=== PATIENT | female | born 1945 | race Caucasian/White ===

== ENCOUNTER → 2016-09-19 | Outpatient (CLI) | payer MEDICARE, OTHER ==
[~2016-09-19] MED LIST: /ALEN70TA OR; /ALEN70TA PO; /ROPI25TA OR; /TIOT18INH INH; /WARF5TA OR; ACET500C PO; ACET65TA OR; B COCAP5 PO; CALCCHW12 OR; CALCIUM/VITAMIN D PO; CALCTAB22 OR; COLA100C2 OR; COUM10TA OR; ESTRING; FISH1000 OR; FISH300C2 PO; FLON0.05; LIDO5DIS EX; OMEP20TA7 PO; PERC5TAB8 OR; PERC7.5T8 OR; PRIL40CA OR; PROAAER INH; PROV90AE IN; SALINE NASAL SPRAY; SYMB80AE IN; SYMB80AE INH; SYNT75TA OR; TUMS500C PO; VIT D 2000 OR; VITA500C OR; VITA500T PO; VITAMIN B COMPLE1 OR; VITAMIN D 3 PO; WARF1TAB PO
[2016-09-19 17:32] LABS: CALCIUM LEVEL 9.4 MG/DL (8.8-10.2); FREE T4 1.54 NG/DL (0.76-1.46)
== END ==
LOC: M WUC 14:02
PROVIDERS: ATTEND Internal Medicine
DX: E55.9 Vitamin D deficiency, unspecified (principal); E06.3 Autoimmune thyroiditis

== ENCOUNTER → 2016-09-19 | Outpatient (CLI) | payer MEDICARE, OTHER ==
--- NOTE | 2016-09-21 09:13 | DEXA ---
AP SPINE L1 - L4 0.778 -3.4 -1.9 LT FEMUR TOTAL 0.610 -3.2 -1.8 RT FEMUR TOTAL Right hip fracture. TOTAL BODY TOTAL OTHER DUAL FEMUR FRAX* ASSESSMENT Risk factors: Premature menopause, family history? History right hip fracture. 10 year probability of fracture Major osteoporotic fracture 41.8 % Hip fracture 18.1 % COMMENTS: There is osteoporosis of the spine. There is osteoporosis of the left hip. The density of the spine has increased 6.3% since the initial exam on 2006. Spine density has increased 5.6% since the most recent exam on 09/17/2014. The density of the left hip has increased 4.6% since the initial exam on 2006. The density of the left hip has increased 0.0% since the most recent exam on . Right hip fracture. FOLLOW-UP: Recommendation for the next bone density exam: 2 years. JUANA
== END ==
LOC: M WHC 14:56
PROVIDERS: ATTEND Internal Medicine
DX: M81.0 Age-related osteoporosis without current pathological fracture (principal); E55.9 Vitamin D deficiency, unspecified; E06.3 Autoimmune thyroiditis

== ENCOUNTER 2016-11-14 00:13 | Emergency (ER) | payer MEDICARE, OTHER ==
[2016-11-14] MEDS ORDERED: RECL5INJ2 IV (00:50)
[2016-11-14] MEDS ORDERED: ESTR0.5T3 PO (00:50)
[2016-11-14] MEDS ORDERED: ELIQ5TAB PO (00:50)
[2016-11-14] MEDS ORDERED: MUCI600T34 PO (00:50)
[2016-11-14 01:33] LABS: BASO % 0.4 % (0.0-1.0); EOS # 0.1 K/mm3 (0.0-0.50); EOS % 0.7 % (0.0-3.0); LARGE UNSTAINED CELL # 0.1 K/mm3 (0.0-0.4); LARGE UNSTAINED CELL % 0.9 % (0.0-4.0); LYMPH # 0.6 K/mm3 (1.5-4.5); LYMPH % 5.7 % (24.0-44.0); MEAN CORPUSCULAR HEMOGLOBIN 30.5 pg (27.0-33.0); MEAN CORPUSCULAR HGB CONC 33.2 g/dl (32.0-36.5); MEAN CORPUSCULAR VOLUME 91.9 fl (80.0-96.0); MONO # 0.5 K/mm3 (0.0-0.8); MONO % 4.4 % (0.0-5.0); NEUTROPHILS # 8.9 K/mm3 (1.8-7.7); NEUTROPHILS % 87.8 % (36.0-66.0); PLATELET COUNT, AUTOMATED 224 k/mm3 (150-450); RED CELL DISTRIBUTION WIDTH 12.2 % (11.5-14.5); WHITE BLOOD COUNT 10.2 K/mm3 (4.0-10.0)
[2016-11-14 01:34] LABS: VENOUS PARTIAL PRESSURE CO2 51.5 mmHg (38.0-50.0); VENOUS PARTIAL PRESSURE O2 72.6 mmHg (30.0-50.0); VENOUS STANDARD HCO3 24.3 MEQ/L; VENOUS TOTAL CO2 28.4 MEQ/L (24.0-28.0)
[2016-11-14 02:03] LABS: ANION GAP 9 MEQ/L (8-16); BLOOD UREA NITROGEN 8 MG/DL (7-18); CARBON DIOXIDE LEVEL 30 MEQ/L (21-32); CHLORIDE LEVEL 108 MEQ/L (98-107); CREATININE FOR GFR 1.16 MG/DL (0.55-1.02); GLOMERULAR FILTRATION RATE 49.2 (>39); GLUCOSE, FASTING 126 MG/DL (83-110); POTASSIUM SERUM 3.7 MEQ/L (3.5-5.1); SODIUM LEVEL 147 MEQ/L (136-145)
[2016-11-14] MEDS: IPRATROPIUM 0.5MG/ALBUTEROL 2.5MG INH SOL UD 3ML (DUONEB)(J7620) NEB PRN ×2 (02:34→03:30)
[2016-11-14] MEDS ORDERED: methylPREDNISolone INJ 125 MG/2 ML VIAL (J2930) IV ONE (03:45)
[2016-11-14] MEDS ORDERED: ALBU83IN INH (03:51)
[2016-11-14] MEDS ORDERED: PRED20TA PO (03:51)
[2016-11-14 04:38] VITALS: BP 127/58
--- NOTE | 2016-11-14 07:59 | REP ---
Clinical: Dyspnea and cough. Technique: PA and lateral. Comparison: 07/14/2014. Findings: Mediastinum and cardiac silhouette are within normal limits. Lung smith demonstrate chronic changes including pleural parenchymal changes and blunting along the right diaphragmatic surface. No obvious acute consolidation. No definite acute effusion or pneumothorax. Skeletal structures demonstrate osteopenia and age-related changes. Impression: Chronic-appearing changes including blunting to the diaphragmatic surfaces. No obvious acute cardiopulmonary process. If the patient remains symptomatic consider chest CT for further investigation. Signed by Charli Hanks MD 11/14/2016 07:51 A
--- NOTE | 2016-11-14 12:33 | ECGEPIP ---
Stationary ECG Study [facility] - ED Test Date: 2016-11-14 Pat Name: JUAN GEE Department: Room: - Gender: F Medical/Surgery Registered Nurse: sole : 1945 Requested By: LOTUS Samuel Order Number: [id number] Reading MD: Rosanne Salas Measurements Intervals [place] Rate: 98 P: 76 TX: 166 QRS: 82 QRSD: 87 T: 52 QT: 337 QTc: 432 Interpretive Statements SINUS RHYTHM LOW V[place] LIMB NSTTW ABNORMALITY NO PRIOR FOR COMPARISON Electronically Signed On 11-14-2016 12:32:57 EDT by Rosanne Salas
== END 2016-11-14 04:39 | disposition home or self-care (01) ==
LOC: M ED 03:14
DX: J44.1 Chronic obstructive pulmonary disease with (acute) exacerbation (principal); R09.02 Hypoxemia; Z79.899 Other long term (current) drug therapy; Z79.01 Long term (current) use of anticoagulants; Z88.8 Allergy status to other drugs, medicaments and biological substances; Z91.041 Radiographic dye allergy status; Z91.048 Other nonmedicinal substance allergy status; Z87.891 Personal history of nicotine dependence
CPT/HCPCS: 36415; 71020; 80048; 82550; 82553; 82803; 84484; 85025; 87040; 87804; 93005; 93041; 94640; 96374; 99285; J2930

== ENCOUNTER → 2016-11-17 | Outpatient (CLI) | payer MEDICARE, OTHER ==
[~2016-11-17] MED LIST changes: +ALBU83IN INH; +ELIQ5TAB PO; +ESTR0.5T3 PO; +MUCI600T34 PO; +PRED20TA PO; +RECL5INJ2 IV
[2016-11-17 18:42] LABS: CALCIUM LEVEL 9.3 MG/DL (8.8-10.2); CREATININE FOR GFR 1.1 MG/DL (0.55-1.02); GLOMERULAR FILTRATION RATE 52.3 (>39)
== END ==
LOC: M WUC 14:19
PROVIDERS: ATTEND Internal Medicine Endocrinology, Diabetes & Metabolism
DX: M81.0 Age-related osteoporosis without current pathological fracture (principal); Z78.0 Asymptomatic menopausal state

== ENCOUNTER → 2017-02-08 | Outpatient (CLI) | payer MEDICARE, OTHER ==
--- NOTE | 2017-02-08 16:44 | REP ---
RIGHT WRIST SERIES: Four views of the right wrist are performed. There is no evidence of acute fracture or dislocation. There is moderate narrowing with subchondral sclerosis at the joint between the scaphoid and trapezium. Scapholunate interval is within normal limits. There is minimal narrowing at the radiocarpal joint. IMPRESSION: Degenerative changes. Signed by Pablo Lin MD 02/09/2017 03:33 P
== END ==
LOC: M WUC 16:05
PROVIDERS: ATTEND Physician Assistant Medical
DX: M25.531 Pain in right wrist (principal)

== ENCOUNTER → 2017-05-01 | Outpatient (CLI) | payer MEDICARE, OTHER ==
[~2017-05-01] MED LIST changes: -MUCI600T34 PO; +MUCI600T37 PO
[2017-05-01 20:02] LABS: CALCIUM LEVEL 8.9 MG/DL (8.8-10.2); GLOMERULAR FILTRATION RATE 58.2 (>39); POTASSIUM SERUM 4.5 MEQ/L (3.5-5.1)
== END ==
LOC: M WUC 15:39
PROVIDERS: ATTEND Internal Medicine Endocrinology, Diabetes & Metabolism
DX: M81.0 Age-related osteoporosis without current pathological fracture (principal)

== ENCOUNTER → 2017-06-20 | Outpatient (CLI) | payer MEDICARE, OTHER ==
[2017-06-20 17:49] LABS: BASO # 0.1 10^3/uL (0.0-0.2); BASO % 2.2 % (0.0-1.0); EOS # 0.1 10^3/uL (0.0-0.50); EOS % 1.8 % (0.0-3.0); IMMATURE GRANULOCYTE % 0.2 % (0-0); LYMPH # 1.3 10^3/uL (1.5-4.5); MEAN CORPUSCULAR HEMOGLOBIN 30.9 pg (27.0-33.0); MEAN CORPUSCULAR HGB CONC 33.2 g/dl (32.0-36.5); MONO # 0.6 10^3/uL (0.0-0.8); MONO % 12.4 % (0.0-5.0); NEUTROPHILS # 2.8 10^3/uL (1.8-7.7); NEUTROPHILS % 56.4 % (36.0-66.0); PLATELET COUNT, AUTOMATED 252 10^3/uL (150-450); RED CELL DISTRIBUTION WIDTH 12.3 % (11.5-14.5); WHITE BLOOD COUNT 4.9 10^3/uL (4.0-10.0)
[2017-06-20 19:17] LABS: ALBUMIN 3.7 GM/DL (3.2-5.2); ALBUMIN/GLOBULIN RATIO 1.23 (1.00-1.93); ALKALINE PHOSPHATASE 69 U/L (45-117); ALT/SGPT 24 U/L (12-78); ANION GAP 5 MEQ/L (8-16); AST/SGOT 19 U/L (15-37); BILIRUBIN,TOTAL 0.6 MG/DL (0.2-1.0); BLOOD UREA NITROGEN 10 MG/DL (7-18); CALCIUM LEVEL 9.1 MG/DL (8.8-10.2); CARBON DIOXIDE LEVEL 31 MEQ/L (21-32); CHLORIDE LEVEL 106 MEQ/L (98-107); CHOLESTEROL LEVEL 225 MG/DL (<200); CREATININE FOR GFR 0.96 MG/DL (0.55-1.02); GLOMERULAR FILTRATION RATE > 60.0 (>39); GLUCOSE, FASTING 93 MG/DL (83-110); POTASSIUM SERUM 4.5 MEQ/L (3.5-5.1); SODIUM LEVEL 142 MEQ/L (136-145); TOTAL PROTEIN 6.7 GM/DL (6.4-8.2); TRIGLYCERIDES LEVEL 96 MG/DL (<150)
== END ==
LOC: M WUC 11:08
PROVIDERS: ATTEND Family Medicine
DX: Z79.899 Other long term (current) drug therapy (principal)

== ENCOUNTER → 2017-08-08 | Outpatient (CLI) | payer MEDICARE, OTHER ==
--- NOTE | 2017-08-08 15:35 | REPMRS ---
Patient History The patient states she had a clinical breast exam in 08/20 Patient is postmenopausal. Benign stereotatic breast biopsy of the left breast, 2000. Benign excisional biopsy of the right breast, 1997. Taking estrogen for 3 years. Digital Woman Screen Mammo: August 08, 2017 - Exam #: [id number] Bilateral CC and MLO view(s) were taken. Technologist: Мария Antony, Technologist Prior study comparison: August 04, 2016, digital woman screen mammo performed at [facility]. August 03, 2015, digital woman screen mammo performed at [facility]. FINDINGS: There are scattered fibroglandular densities. There has been no change in the appearance of the mammogram from the prior studies. There is a mild amount of residual fibroglandular tissue which is fairly symmetric. There is no interval development of dominant mass, architectural distortion, or clustered microcalcification suggestive of malignancy. Stereotactic clip in left breast, stable.Large coarse benign appearing calcifications are present. There are scattered, small, benign calcifications of doubtful clinical significance. No significant changes when compared with prior studies. ASSESSMENT: BI-RADS/ACR category 2 mammogram. Benign finding(s). Recommendation Routine screening mammogram in 1 year (for women over age 40). This mammogram was interpreted with the aid of an FDA-approved computer-aided dectection system. A. Negative x-ray reports should not delay biopsy if a dominant or clinically suspicious mass is present. B. Four to eight percent of cancers are not identified by mammography. C. Adenosis and dense breast may obscure an underlying neoplasm. Electronically Signed By: Kaleb Burnham MD 08/08/17 [id number]
== END ==
LOC: M WHC 14:07
PROVIDERS: ATTEND Nurse Practitioner Family
DX: Z01.419 Encounter for gynecological examination (general) (routine) without abnormal findings (principal); Z12.31 Encounter for screening mammogram for malignant neoplasm of breast; Z78.0 Asymptomatic menopausal state; Z12.12 Encounter for screening for malignant neoplasm of rectum; Z92.89 Personal history of other medical treatment; Z92.23 Personal history of estrogen therapy
CPT/HCPCS: 82270; G0101; G0202

== ENCOUNTER → 2017-08-10 | Outpatient (CLI) | payer MEDICARE, OTHER ==
--- NOTE | 2017-08-10 15:19 | REP ---
The chest two views HISTORY: Cough Comparison: 11/14/2016 A minimal increase in interstitial markings is present in the lungs consistent with chronic interstitial change. There is blunting of the right costophrenic angle due to pleural thickening. The heart is normal in size. The pulmonary vasculature is normal in appearance. The bony structure is intact. IMPRESSION: Chronic interstitial change. Signed by Yasmani Hennessy MD 08/10/2017 03:11 P
== END ==
LOC: M SMT 14:33
PROVIDERS: ATTEND Internal Medicine Pulmonary Disease
DX: R05 Cough (principal)

== ENCOUNTER 2017-09-17 09:42 | Inpatient (IN) | payer MEDICARE, OTHER ==
[2017-09-17 10:53] LABS: BASO # 0.1 10^3/uL (0.0-0.2); BASO % 1.1 % (0.0-1.0); HEMATOCRIT 46.9 % (36.0-47.0); HEMOGLOBIN 15.6 g/dl (12.0-16.0); IMMATURE GRANULOCYTE % 0.3 % (0-0); LYMPH # 0.4 10^3/uL (1.5-4.5); LYMPH % 5.9 % (24.0-44.0); MEAN CORPUSCULAR HEMOGLOBIN 30.6 pg (27.0-33.0); MEAN CORPUSCULAR HGB CONC 33.3 g/dl (32.0-36.5); MONO # 0.7 10^3/uL (0.0-0.8); MONO % 10.4 % (0.0-5.0); NEUTROPHILS # 5.4 10^3/uL (1.8-7.7); NEUTROPHILS % 82.3 % (36.0-66.0); PLATELET COUNT, AUTOMATED 217 10^3/uL (150-450); RED CELL DISTRIBUTION WIDTH 12.6 % (11.5-14.5); WHITE BLOOD COUNT 6.6 10^3/uL (4.0-10.0)
[2017-09-17 11:03] LABS: ANION GAP 5 MEQ/L (8-16); BLOOD UREA NITROGEN 7 MG/DL (7-18); CALCIUM LEVEL 9.2 MG/DL (8.8-10.2); CARBON DIOXIDE LEVEL 32 MEQ/L (21-32); CHLORIDE LEVEL 99 MEQ/L (98-107); CREATININE FOR GFR 0.78 MG/DL (0.55-1.02); GLOMERULAR FILTRATION RATE > 60.0 (>39); GLUCOSE, FASTING 121 MG/DL (83-110); POTASSIUM SERUM 4.2 MEQ/L (3.5-5.1); SODIUM LEVEL 136 MEQ/L (136-145)
[2017-09-17] MEDS: methylPREDNISolone INJ 125 MG/2 ML VIAL (J2930) IV ×3 (11:12→22:31)
[2017-09-17 11:30] LABS: ABG BASE EXCESS 1.5 (-2.0-2.0); ABG HCO3 28.4 MEQ/L (22.0-26.0); ABG O2 SATURATION 89.6 % (95.0-99.0); ABG PARTIAL PRESSURE CO2 53.3 mmHg (35.0-45.0); ABG PARTIAL PRESSURE O2 59.3 mmHg (75.0-100.0); ABG STANDARD HCO3 25.6 MEQ/L (22.0-26.0); ABG TOTAL CO2 30.1 MEQ/L (23.0-31.0); ABG pH (ARTERIAL) 7.345 UNITS (7.350-7.450)
[2017-09-17] MEDS: IPRATROPIUM 0.5MG/ALBUTEROL 2.5MG INH SOL UD 3ML (DUONEB)(J7620) NEB ×6 (11:36→14:15)
[2017-09-17] MEDS: ACETAMINOPHEN TAB 650MG DOSE (2X325MG) PO ×3 (11:39→22:12)
[2017-09-17] MEDS ORDERED: LEVALBUTEROL 1.25 MG/0.5 ML CONCENTRATE NEB INH (15:30)
[2017-09-17] MEDS ORDERED: ONDANSETRON 4MG/2ML VIAL (J2405) IV (15:30)
[2017-09-17] MEDS ORDERED: ZOLEDRONIC ACID 5 MG 100ML IVBAG (RECLAST)(J3489 PER 1MG) IV (15:45)
[2017-09-17] MEDS ORDERED: diphenhydrAMINE INJ 50MG/ML VIAL (J1200) IM (15:45)
[2017-09-17] MEDS: LevoFLOXacin IV 500 MG in APPROPRIATE DILUENT 1 EA IV (15:55)
[2017-09-17] MEDS ORDERED: ENOXAPARIN 80 MG/0.8 ML SYRINGE (J1650) SC (16:00)
[2017-09-17] MEDS: LEVALBUTEROL 1.25 MG/0.5 ML CONCENTRATE NEB INH ×3 (16:00→23:39)
[2017-09-17] MEDS: NS 1,000 ML IV (16:00)
[2017-09-17 20:33] LABS: CPK CREATINE PHOSPHOKINASE 124 U/L (26-192); TROPONIN I < 0.02 NG/ML (< 0.10)
[2017-09-17 20:34] LABS: MB/CK RELATIVE INDEX 5.64 (< OR =4)
[2017-09-17] MEDS: SYMBICORT 80/4.5MCG INHALER 6GM INH (21:00)
[2017-09-17] MEDS: APIXABAN 5 MG TAB (ELIQUIS) PO (21:22)
[2017-09-17] MEDS: OMEPRAZOLE 20 MG CAP PO (21:23)
[2017-09-17] MEDS: guaiFENesin ER 600 MG TAB PO (21:23)
[2017-09-17] MEDS: CHLORASEPTIC SPRAY MT (22:42)
[2017-09-18] MEDS: LEVALBUTEROL 1.25 MG/0.5 ML CONCENTRATE NEB INH ×6 (02:39→18:19)
[2017-09-18] MEDS: CHLORASEPTIC SPRAY MT (03:10)
[2017-09-18] MEDS: ACETAMINOPHEN TAB 650MG DOSE (2X325MG) PO ×3 (04:04→21:15)
[2017-09-18] MEDS: methylPREDNISolone INJ 125 MG/2 ML VIAL (J2930) IV ×2 (04:04→15:09)
[2017-09-18 04:21] LABS: BASO % 0.2 % (0.0-1.0); HEMATOCRIT 45.7 % (36.0-47.0); IMMATURE GRANULOCYTE % 0.2 % (0-0); LYMPH # 0.4 10^3/uL (1.5-4.5); LYMPH % 7.2 % (24.0-44.0); MEAN CORPUSCULAR HEMOGLOBIN 29.8 pg (27.0-33.0); MEAN CORPUSCULAR HGB CONC 32.8 g/dl (32.0-36.5); MEAN CORPUSCULAR VOLUME 90.7 fl (80.0-96.0); MONO # 0.2 10^3/uL (0.0-0.8); MONO % 2.8 % (0.0-5.0); NEUTROPHILS # 4.7 10^3/uL (1.8-7.7); NEUTROPHILS % 89.6 % (36.0-66.0); PLATELET COUNT, AUTOMATED 216 10^3/uL (150-450); RED BLOOD COUNT 5.04 10^6/uL (4.00-5.40); RED CELL DISTRIBUTION WIDTH 12.6 % (11.5-14.5); WHITE BLOOD COUNT 5.3 10^3/uL (4.0-10.0)
[2017-09-18 04:47] LABS: ANION GAP 4 MEQ/L (8-16); BLOOD UREA NITROGEN 10 MG/DL (7-18); CALCIUM LEVEL 8.7 MG/DL (8.8-10.2); CARBON DIOXIDE LEVEL 32 MEQ/L (21-32); CHLORIDE LEVEL 104 MEQ/L (98-107); CPK CREATINE PHOSPHOKINASE 190 U/L (26-192); CREATININE FOR GFR 0.74 MG/DL (0.55-1.02); GLOMERULAR FILTRATION RATE > 60.0 (>39); GLUCOSE, FASTING 157 MG/DL (83-110); MAGNESIUM LEVEL 2.3 MG/DL (1.8-2.4); MB/CK RELATIVE INDEX 6.84 (< OR =4); POTASSIUM SERUM 4.6 MEQ/L (3.5-5.1); SODIUM LEVEL 140 MEQ/L (136-145); TROPONIN I < 0.02 NG/ML (< 0.10)
[2017-09-18] MEDS: LEVOTHYROXINE 88MCG TABLET (0.088 MG) PO (06:42)
[2017-09-18] MEDS: TIOTROPIUM INHALER/CAPSULE (SPIRIVA) INH (08:02)
[2017-09-18] MEDS: SYMBICORT 80/4.5MCG INHALER 6GM INH (08:02)
[2017-09-18] MEDS: OMEPRAZOLE 20 MG CAP PO ×2 (08:25→21:14)
[2017-09-18] MEDS ORDERED: ENOXAPARIN 40 MG/0.4 ML SYRINGE (J1650) SC (09:00)
[2017-09-18] MEDS: guaiFENesin ER 600 MG TAB PO ×2 (10:00→21:15)
[2017-09-18] MEDS: ASCORBIC ACID 500 MG TAB PO (10:00)
[2017-09-18] MEDS: MULTIVITAMINS/MINERALS THERAP 1 TAB PO (10:00)
[2017-09-18] MEDS: APIXABAN 5 MG TAB (ELIQUIS) PO ×2 (10:01→21:14)
[2017-09-18] MEDS: MAGNESIUM OXIDE 400 MG TAB (MAG-OX) PO (10:01)
[2017-09-18 13:51] LABS: CK-MB VALUE MASS 16.8 NG/ML (0.0-3.6); CPK CREATINE PHOSPHOKINASE 219 U/L (26-192); MB/CK RELATIVE INDEX 7.67 (< OR =4); TROPONIN I < 0.02 NG/ML (< 0.10)
[2017-09-18] MEDS: tiZANidine 4 MG TAB PO ×2 (15:09→21:00)
[2017-09-18 18:51] LABS: ABG BASE EXCESS 1.6 (-2.0-2.0); ABG HCO3 28.4 MEQ/L (22.0-26.0); ABG O2 SATURATION 94.1 % (95.0-99.0); ABG PARTIAL PRESSURE CO2 52.5 mmHg (35.0-45.0); ABG PARTIAL PRESSURE O2 71.8 mmHg (75.0-100.0); ABG STANDARD HCO3 25.8 MEQ/L (22.0-26.0); ABG pH (ARTERIAL) 7.351 UNITS (7.350-7.450)
[2017-09-18] MEDS: LORazepam 0.5 MG TAB PO (21:19)
[2017-09-18] MEDS ORDERED: SLF 3 ML SYR IV (22:00)
[2017-09-18] MEDS: OMEGA-3 1050MG CAPSULE PO (23:25)
[2017-09-18] MEDS: CALCIUM CARBONATE 500 MG CHEW U/D PO (23:25)
[2017-09-18] MEDS: SLF 3 ML SYR IV (23:26)
[2017-09-18] MEDS: VITAMIN D 1,000 INTERNATIONAL UNITS TABLET PO (23:26)
[2017-09-19] MEDS: SYMBICORT 80/4.5MCG INHALER 6GM INH ×3 (00:05→21:28)
[2017-09-19] MEDS: LEVALBUTEROL 1.25 MG/0.5 ML CONCENTRATE NEB INH ×6 (03:26→20:00)
[2017-09-19] MEDS: LORazepam 0.5 MG TAB PO ×2 (03:47→20:47)
[2017-09-19] MEDS: SLF 3 ML SYR IV ×3 (06:01→20:54)
[2017-09-19] MEDS: LEVOTHYROXINE 88MCG TABLET (0.088 MG) PO (06:01)
[2017-09-19 06:17] LABS: HEMATOCRIT 45.4 % (36.0-47.0); MEAN CORPUSCULAR HEMOGLOBIN 30.2 pg (27.0-33.0); MEAN CORPUSCULAR VOLUME 91.5 fl (80.0-96.0); NEUTROPHILS % 79.5 % (36.0-66.0); PLATELET COUNT, AUTOMATED 233 10^3/uL (150-450); RED BLOOD COUNT 4.96 10^6/uL (4.00-5.40); RED CELL DISTRIBUTION WIDTH 12.6 % (11.5-14.5); WHITE BLOOD COUNT 9.6 10^3/uL (4.0-10.0)
[2017-09-19 06:18] LABS: BASO % 0.1 % (0.0-1.0); IMMATURE GRANULOCYTE % 0.2 % (0-0); LYMPH # 0.8 10^3/uL (1.5-4.5); LYMPH % 8.5 % (24.0-44.0); MONO # 1.1 10^3/uL (0.0-0.8); MONO % 11.7 % (0.0-5.0); NEUTROPHILS # 7.6 10^3/uL (1.8-7.7)
[2017-09-19 06:34] LABS: BLOOD UREA NITROGEN 15 MG/DL (7-18); CREATININE FOR GFR 0.71 MG/DL (0.55-1.02); GLOMERULAR FILTRATION RATE > 60.0 (>39); GLUCOSE, FASTING 115 MG/DL (83-110)
[2017-09-19 06:35] LABS: ANION GAP 4 MEQ/L (8-16); CALCIUM LEVEL 8.6 MG/DL (8.8-10.2); CARBON DIOXIDE LEVEL 36 MEQ/L (21-32); CHLORIDE LEVEL 99 MEQ/L (98-107); MAGNESIUM LEVEL 2.4 MG/DL (1.8-2.4); POTASSIUM SERUM 4.4 MEQ/L (3.5-5.1); SODIUM LEVEL 139 MEQ/L (136-145)
[2017-09-19] MEDS: ACETYLCYSTEINE 20% 4 ML VIAL (200MG/ML) INH ×2 (08:00→16:41)
[2017-09-19] MEDS: MULTIVITAMINS/MINERALS THERAP 1 TAB PO (08:25)
[2017-09-19] MEDS: ACETAMINOPHEN TAB 650MG DOSE (2X325MG) PO ×2 (08:25→18:11)
[2017-09-19] MEDS: predniSONE 20 MG TAB PO (08:25)
[2017-09-19] MEDS: OMEPRAZOLE 20 MG CAP PO ×2 (08:25→20:47)
[2017-09-19] MEDS: guaiFENesin ER 600 MG TAB PO ×2 (08:26→20:47)
[2017-09-19] MEDS: MAGNESIUM OXIDE 400 MG TAB (MAG-OX) PO (08:26)
[2017-09-19] MEDS: APIXABAN 5 MG TAB (ELIQUIS) PO ×2 (08:26→20:47)
[2017-09-19] MEDS: OMEGA-3 1050MG CAPSULE PO ×2 (08:26→20:47)
[2017-09-19] MEDS: ASCORBIC ACID 500 MG TAB PO (08:26)
[2017-09-19] MEDS: CALCIUM CARBONATE 500 MG CHEW U/D PO ×2 (08:26→20:47)
[2017-09-19] MEDS: tiZANidine 4 MG TAB PO ×2 (08:26→20:47)
[2017-09-19 08:59] LABS: FREE T4 1.62 NG/DL (0.76-1.46); THYROID STIMULATING HORMONE 0.471 uIU/ML (0.358-3.740)
[2017-09-19] MEDS ORDERED: OMEGA-3 1050MG CAPSULE PO (09:00)
[2017-09-19 09:45] LABS: TOTAL T3 81.9 NG/DL (60.0-181.0)
[2017-09-19] MEDS: TIOTROPIUM INHALER/CAPSULE (SPIRIVA) INH (13:07)
[2017-09-19] MEDS: VITAMIN D 1,000 INTERNATIONAL UNITS TABLET PO (17:47)
[2017-09-19] MEDS: CEPACOL LOZENGE PO (18:11)
[2017-09-19] MEDS ORDERED: VITAMIN D 1,000 INTERNATIONAL UNITS TABLET PO (21:00)
[2017-09-20] MEDS: SLF 3 ML SYR IV ×3 (05:01→22:00)
[2017-09-20] MEDS: LEVOTHYROXINE 88MCG TABLET (0.088 MG) PO (05:01)
[2017-09-20 06:35] LABS: HEMATOCRIT 45.3 % (36.0-47.0); HEMOGLOBIN 14.7 g/dl (12.0-16.0); MEAN CORPUSCULAR HGB CONC 32.5 g/dl (32.0-36.5); MEAN CORPUSCULAR VOLUME 92.4 fl (80.0-96.0); PLATELET COUNT, AUTOMATED 233 10^3/uL (150-450); RED CELL DISTRIBUTION WIDTH 12.4 % (11.5-14.5); WHITE BLOOD COUNT 7.4 10^3/uL (4.0-10.0)
[2017-09-20 06:40] LABS: POSITIVE MORPH POS FLAG
[2017-09-20 06:41] LABS: ADD MANUAL DIFFER YES; DIFF SLIDE NUMBER 41
[2017-09-20 06:57] LABS: ANION GAP 1 MEQ/L (8-16); BLOOD UREA NITROGEN 16 MG/DL (7-18); CALCIUM LEVEL 8.7 MG/DL (8.8-10.2); CARBON DIOXIDE LEVEL 40 MEQ/L (21-32); CHLORIDE LEVEL 99 MEQ/L (98-107); CREATININE FOR GFR 0.82 MG/DL (0.55-1.02); GLOMERULAR FILTRATION RATE > 60.0 (>39); GLUCOSE, FASTING 92 MG/DL (83-110); MAGNESIUM LEVEL 2.2 MG/DL (1.8-2.4); POTASSIUM SERUM 4.5 MEQ/L (3.5-5.1); SODIUM LEVEL 140 MEQ/L (136-145)
[2017-09-20 07:11] LABS: ATYPICAL LYMPH 3 % (0-5); BANDS 1 % (< 11); LYMPHOCYTES 27 % (16-52); MONOCYTES 15 % (0-8); NEUTROPHILS 54 % (35-75); PLATELET ESTIMATE NORMAL (NORMAL)
[2017-09-20 07:13] LABS: HYPOCHROMASIA 1+
[2017-09-20] MEDS: SYMBICORT 80/4.5MCG INHALER 6GM INH ×2 (08:05→22:58)
[2017-09-20] MEDS: LEVALBUTEROL 1.25 MG/0.5 ML CONCENTRATE NEB INH ×8 (08:05→23:46)
[2017-09-20] MEDS: ACETYLCYSTEINE 20% 4 ML VIAL (200MG/ML) INH ×2 (08:06→20:06)
[2017-09-20] MEDS: TIOTROPIUM INHALER/CAPSULE (SPIRIVA) INH (08:07)
[2017-09-20] MEDS: tiZANidine 4 MG TAB PO ×2 (08:42→21:00)
[2017-09-20] MEDS: ASCORBIC ACID 500 MG TAB PO (08:43)
[2017-09-20] MEDS: ACETAMINOPHEN TAB 650MG DOSE (2X325MG) PO ×2 (08:43→21:49)
[2017-09-20] MEDS: APIXABAN 5 MG TAB (ELIQUIS) PO ×2 (08:43→21:46)
[2017-09-20] MEDS: CALCIUM CARBONATE 500 MG CHEW U/D PO ×2 (08:44→21:48)
[2017-09-20] MEDS: OMEGA-3 1050MG CAPSULE PO ×2 (08:44→21:47)
[2017-09-20] MEDS: MULTIVITAMINS/MINERALS THERAP 1 TAB PO (08:44)
[2017-09-20] MEDS: predniSONE 20 MG TAB PO (08:44)
[2017-09-20] MEDS: guaiFENesin ER 600 MG TAB PO ×2 (08:44→21:47)
[2017-09-20] MEDS: MAGNESIUM OXIDE 400 MG TAB (MAG-OX) PO (08:44)
[2017-09-20] MEDS: OMEPRAZOLE 20 MG CAP PO ×2 (08:44→21:47)
[2017-09-20] MEDS: VITAMIN D 1,000 INTERNATIONAL UNITS TABLET PO (18:16)
[2017-09-21] MEDS: LEVALBUTEROL 1.25 MG/0.5 ML CONCENTRATE NEB INH ×6 (04:00→23:43)
[2017-09-21] MEDS: SLF 3 ML SYR IV ×3 (05:39→20:59)
[2017-09-21] MEDS: LEVOTHYROXINE 88MCG TABLET (0.088 MG) PO (05:39)
[2017-09-21 05:50] LABS: HEMATOCRIT 44.1 % (36.0-47.0); HEMOGLOBIN 14.6 g/dl (12.0-16.0); MEAN CORPUSCULAR HGB CONC 33.1 g/dl (32.0-36.5); MEAN CORPUSCULAR VOLUME 90.7 fl (80.0-96.0); PLATELET COUNT, AUTOMATED 230 10^3/uL (150-450); RED BLOOD COUNT 4.86 10^6/uL (4.00-5.40); RED CELL DISTRIBUTION WIDTH 12.3 % (11.5-14.5); WHITE BLOOD COUNT 6.1 10^3/uL (4.0-10.0)
[2017-09-21 05:58] LABS: ADD MANUAL DIFFER YES; DIFF SLIDE NUMBER 26; POSITIVE MORPH POS FLAG
[2017-09-21 06:09] LABS: ANION GAP 4 MEQ/L (8-16); BLOOD UREA NITROGEN 14 MG/DL (7-18); CALCIUM LEVEL 8.8 MG/DL (8.8-10.2); CARBON DIOXIDE LEVEL 38 MEQ/L (21-32); CHLORIDE LEVEL 99 MEQ/L (98-107); CREATININE FOR GFR 0.73 MG/DL (0.55-1.02); GLOMERULAR FILTRATION RATE > 60.0 (>39); GLUCOSE, FASTING 92 MG/DL (83-110); MAGNESIUM LEVEL 2.2 MG/DL (1.8-2.4); POTASSIUM SERUM 3.6 MEQ/L (3.5-5.1); SODIUM LEVEL 141 MEQ/L (136-145)
[2017-09-21 06:58] LABS: ATYPICAL LYMPH 10 % (0-5); LYMPHOCYTES 33 % (16-52); MONOCYTES 7 % (0-8); NEUTROPHILS 50 % (35-75)
[2017-09-21 06:59] LABS: PLATELET ESTIMATE NORMAL (NORMAL)
[2017-09-21] MEDS: ACETYLCYSTEINE 20% 4 ML VIAL (200MG/ML) INH (08:26)
[2017-09-21] MEDS: TIOTROPIUM INHALER/CAPSULE (SPIRIVA) INH (08:26)
[2017-09-21] MEDS: SYMBICORT 80/4.5MCG INHALER 6GM INH ×2 (08:26→21:07)
[2017-09-21] MEDS: tiZANidine 4 MG TAB PO ×4 (09:00→20:46)
[2017-09-21] MEDS: guaiFENesin ER 600 MG TAB PO ×2 (09:00→20:58)
[2017-09-21] MEDS: LORazepam 0.5 MG TAB PO ×2 (09:31→20:58)
[2017-09-21] MEDS: predniSONE 20 MG TAB PO (09:31)
[2017-09-21] MEDS: APIXABAN 5 MG TAB (ELIQUIS) PO ×2 (09:31→20:57)
[2017-09-21] MEDS: OMEGA-3 1050MG CAPSULE PO ×2 (09:31→20:58)
[2017-09-21] MEDS: ASCORBIC ACID 500 MG TAB PO (09:31)
[2017-09-21] MEDS: OMEPRAZOLE 20 MG CAP PO ×2 (09:32→20:58)
[2017-09-21] MEDS: MAGNESIUM OXIDE 400 MG TAB (MAG-OX) PO (09:32)
[2017-09-21] MEDS: MULTIVITAMINS/MINERALS THERAP 1 TAB PO (09:32)
[2017-09-21] MEDS: CALCIUM CARBONATE 500 MG CHEW U/D PO ×2 (09:32→20:58)
[2017-09-21] MEDS: VITAMIN D 1,000 INTERNATIONAL UNITS TABLET PO (18:21)
[2017-09-21] MEDS: ACETAMINOPHEN TAB 650MG DOSE (2X325MG) PO ×2 (18:21→23:28)
[2017-09-22] MEDS: LEVALBUTEROL 1.25 MG/0.5 ML CONCENTRATE NEB INH ×6 (04:00→23:55)
[2017-09-22 05:16] LABS: BASO % 0.6 % (0.0-1.0); EOS % 0.6 % (0.0-3.0); HEMATOCRIT 44.2 % (36.0-47.0); HEMOGLOBIN 14.6 g/dl (12.0-16.0); IMMATURE GRANULOCYTE % 0.3 % (0-0); LYMPH # 2.2 10^3/uL (1.5-4.5); LYMPH % 31.5 % (24.0-44.0); MEAN CORPUSCULAR HEMOGLOBIN 30.4 pg (27.0-33.0); MEAN CORPUSCULAR VOLUME 92.1 fl (80.0-96.0); MONO # 0.7 10^3/uL (0.0-0.8); MONO % 10.8 % (0.0-5.0); NEUTROPHILS # 3.9 10^3/uL (1.8-7.7); NEUTROPHILS % 56.2 % (36.0-66.0); PLATELET COUNT, AUTOMATED 226 10^3/uL (150-450); RED CELL DISTRIBUTION WIDTH 12.4 % (11.5-14.5); WHITE BLOOD COUNT 6.9 10^3/uL (4.0-10.0)
[2017-09-22 05:32] LABS: ANION GAP 4 MEQ/L (8-16); BLOOD UREA NITROGEN 17 MG/DL (7-18); CALCIUM LEVEL 8.9 MG/DL (8.8-10.2); CARBON DIOXIDE LEVEL 39 MEQ/L (21-32); CHLORIDE LEVEL 99 MEQ/L (98-107); CREATININE FOR GFR 0.85 MG/DL (0.55-1.02); GLOMERULAR FILTRATION RATE > 60.0 (>39); GLUCOSE, FASTING 99 MG/DL (83-110); POTASSIUM SERUM 4.2 MEQ/L (3.5-5.1); SODIUM LEVEL 142 MEQ/L (136-145)
[2017-09-22] MEDS: LEVOTHYROXINE 88MCG TABLET (0.088 MG) PO (05:50)
[2017-09-22] MEDS: SLF 3 ML SYR IV ×3 (05:50→21:04)
[2017-09-22] MEDS: TIOTROPIUM INHALER/CAPSULE (SPIRIVA) INH (08:27)
[2017-09-22] MEDS: SYMBICORT 80/4.5MCG INHALER 6GM INH ×2 (08:27→20:57)
[2017-09-22] MEDS: tiZANidine 4 MG TAB PO ×3 (09:00→21:04)
[2017-09-22] MEDS: CALCIUM CARBONATE 500 MG CHEW U/D PO ×2 (09:13→21:03)
[2017-09-22] MEDS: predniSONE 10 MG TAB PO (09:14)
[2017-09-22] MEDS: OMEGA-3 1050MG CAPSULE PO ×2 (09:14→21:03)
[2017-09-22] MEDS: MAGNESIUM OXIDE 400 MG TAB (MAG-OX) PO (09:14)
[2017-09-22] MEDS: ASCORBIC ACID 500 MG TAB PO (09:15)
[2017-09-22] MEDS: MULTIVITAMINS/MINERALS THERAP 1 TAB PO (09:15)
[2017-09-22] MEDS: OMEPRAZOLE 20 MG CAP PO ×2 (09:15→21:03)
[2017-09-22] MEDS: guaiFENesin ER 600 MG TAB PO ×2 (09:15→21:03)
[2017-09-22] MEDS: APIXABAN 5 MG TAB (ELIQUIS) PO ×2 (09:15→21:03)
[2017-09-22] MEDS: ACETAMINOPHEN TAB 650MG DOSE (2X325MG) PO ×2 (12:37→23:43)
[2017-09-22] MEDS: LORazepam 0.5 MG TAB PO ×2 (16:14→23:42)
[2017-09-22] MEDS: VITAMIN D 1,000 INTERNATIONAL UNITS TABLET PO (17:33)
[2017-09-23] MEDS: LEVALBUTEROL 1.25 MG/0.5 ML CONCENTRATE NEB INH ×6 (03:31→23:52)
[2017-09-23] MEDS: LEVOTHYROXINE 88MCG TABLET (0.088 MG) PO (05:20)
[2017-09-23] MEDS: SLF 3 ML SYR IV ×3 (05:23→20:57)
[2017-09-23 05:34] LABS: BASO % 0.5 % (0.0-1.0); EOS # 0.1 10^3/uL (0.0-0.50); HEMATOCRIT 43.7 % (36.0-47.0); HEMOGLOBIN 14.4 g/dl (12.0-16.0); IMMATURE GRANULOCYTE # 0.1 10^3/uL (0-0); IMMATURE GRANULOCYTE % 0.6 % (0-0); LYMPH # 2.4 10^3/uL (1.5-4.5); LYMPH % 29.5 % (24.0-44.0); MEAN CORPUSCULAR HEMOGLOBIN 29.9 pg (27.0-33.0); MEAN CORPUSCULAR VOLUME 90.9 fl (80.0-96.0); MONO # 0.7 10^3/uL (0.0-0.8); MONO % 8.5 % (0.0-5.0); NEUTROPHILS % 59.9 % (36.0-66.0); PLATELET COUNT, AUTOMATED 271 10^3/uL (150-450); RED BLOOD COUNT 4.81 10^6/uL (4.00-5.40); RED CELL DISTRIBUTION WIDTH 12.2 % (11.5-14.5); WHITE BLOOD COUNT 8.3 10^3/uL (4.0-10.0)
[2017-09-23 05:56] LABS: ANION GAP 6 MEQ/L (8-16); BLOOD UREA NITROGEN 19 MG/DL (7-18); CALCIUM LEVEL 8.7 MG/DL (8.8-10.2); CARBON DIOXIDE LEVEL 36 MEQ/L (21-32); CHLORIDE LEVEL 100 MEQ/L (98-107); GLOMERULAR FILTRATION RATE > 60.0 (>39); GLUCOSE, FASTING 89 MG/DL (83-110); POTASSIUM SERUM 3.6 MEQ/L (3.5-5.1); SODIUM LEVEL 142 MEQ/L (136-145)
[2017-09-23] MEDS: TIOTROPIUM INHALER/CAPSULE (SPIRIVA) INH (08:22)
[2017-09-23] MEDS: SYMBICORT 80/4.5MCG INHALER 6GM INH ×2 (08:22→20:52)
[2017-09-23] MEDS: tiZANidine 4 MG TAB PO ×2 (09:00→20:55)
[2017-09-23] MEDS: predniSONE 10 MG TAB PO (09:33)
[2017-09-23] MEDS: APIXABAN 5 MG TAB (ELIQUIS) PO ×2 (09:33→20:55)
[2017-09-23] MEDS: CALCIUM CARBONATE 500 MG CHEW U/D PO ×2 (09:33→20:55)
[2017-09-23] MEDS: MULTIVITAMINS/MINERALS THERAP 1 TAB PO (09:34)
[2017-09-23] MEDS: guaiFENesin ER 600 MG TAB PO ×2 (09:34→20:55)
[2017-09-23] MEDS: MAGNESIUM OXIDE 400 MG TAB (MAG-OX) PO (09:34)
[2017-09-23] MEDS: ASCORBIC ACID 500 MG TAB PO (09:34)
[2017-09-23] MEDS: OMEPRAZOLE 20 MG CAP PO ×2 (09:34→20:55)
[2017-09-23] MEDS: OMEGA-3 1050MG CAPSULE PO ×2 (09:35→20:55)
[2017-09-23] MEDS: ACETAMINOPHEN TAB 650MG DOSE (2X325MG) PO ×2 (09:35→17:31)
[2017-09-23] MEDS: LORazepam 0.5 MG TAB PO (11:51)
[2017-09-23] MEDS: VITAMIN D 1,000 INTERNATIONAL UNITS TABLET PO (17:30)
[2017-09-24] MEDS: LORazepam 0.5 MG TAB PO ×2 (02:11→11:53)
[2017-09-24] MEDS: LEVALBUTEROL 1.25 MG/0.5 ML CONCENTRATE NEB INH ×3 (04:00→12:10)
[2017-09-24 05:28] LABS: BASO # 0.1 10^3/uL (0.0-0.2); BASO % 0.6 % (0.0-1.0); EOS # 0.1 10^3/uL (0.0-0.50); EOS % 0.8 % (0.0-3.0); HEMATOCRIT 42.9 % (36.0-47.0); HEMOGLOBIN 14.1 g/dl (12.0-16.0); IMMATURE GRANULOCYTE # 0.1 10^3/uL (0-0); IMMATURE GRANULOCYTE % 0.7 % (0-0); LYMPH # 2.7 10^3/uL (1.5-4.5); LYMPH % 27.7 % (24.0-44.0); MEAN CORPUSCULAR HEMOGLOBIN 29.6 pg (27.0-33.0); MEAN CORPUSCULAR HGB CONC 32.9 g/dl (32.0-36.5); MEAN CORPUSCULAR VOLUME 90.1 fl (80.0-96.0); MONO # 0.8 10^3/uL (0.0-0.8); MONO % 8.3 % (0.0-5.0); NEUTROPHILS # 6.1 10^3/uL (1.8-7.7); NEUTROPHILS % 61.9 % (36.0-66.0); PLATELET COUNT, AUTOMATED 276 10^3/uL (150-450); RED BLOOD COUNT 4.76 10^6/uL (4.00-5.40); RED CELL DISTRIBUTION WIDTH 12.3 % (11.5-14.5); WHITE BLOOD COUNT 9.8 10^3/uL (4.0-10.0)
[2017-09-24] MEDS: LEVOTHYROXINE 88MCG TABLET (0.088 MG) PO (05:36)
[2017-09-24] MEDS: SLF 3 ML SYR IV (05:37)
[2017-09-24 05:47] LABS: ANION GAP 5 MEQ/L (8-16); BLOOD UREA NITROGEN 18 MG/DL (7-18); CALCIUM LEVEL 8.5 MG/DL (8.8-10.2); CARBON DIOXIDE LEVEL 36 MEQ/L (21-32); CHLORIDE LEVEL 101 MEQ/L (98-107); CREATININE FOR GFR 0.75 MG/DL (0.55-1.02); GLOMERULAR FILTRATION RATE > 60.0 (>39); GLUCOSE, FASTING 90 MG/DL (83-110); POTASSIUM SERUM 3.7 MEQ/L (3.5-5.1); SODIUM LEVEL 142 MEQ/L (136-145)
[2017-09-24] MEDS: tiZANidine 4 MG TAB PO (09:00)
[2017-09-24] MEDS: CALCIUM CARBONATE 500 MG CHEW U/D PO (09:00)
[2017-09-24] MEDS: predniSONE 10 MG TAB PO (09:30)
[2017-09-24] MEDS: MULTIVITAMINS/MINERALS THERAP 1 TAB PO (09:30)
[2017-09-24] MEDS: APIXABAN 5 MG TAB (ELIQUIS) PO (09:30)
[2017-09-24] MEDS: ASCORBIC ACID 500 MG TAB PO (09:30)
[2017-09-24] MEDS: MAGNESIUM OXIDE 400 MG TAB (MAG-OX) PO (09:31)
[2017-09-24] MEDS: guaiFENesin ER 600 MG TAB PO (09:31)
[2017-09-24] MEDS: OMEGA-3 1050MG CAPSULE PO (09:31)
[2017-09-24] MEDS: OMEPRAZOLE 20 MG CAP PO (09:31)
[2017-09-24] MEDS: TIOTROPIUM INHALER/CAPSULE (SPIRIVA) INH (09:57)
[2017-09-24] MEDS: SYMBICORT 80/4.5MCG INHALER 6GM INH (09:58)
== END 2017-09-24 14:30 | disposition home or self-care (01) | DRG 192 ==
LOC: M PCU 09-18 20:08 → M ED 09:42 → M ED INP 15:19
DX: J44.1 Chronic obstructive pulmonary disease with (acute) exacerbation (principal); B97.4 Respiratory syncytial virus as the cause of diseases classified elsewhere; K21.9 Gastro-esophageal reflux disease without esophagitis; J44.0 Chronic obstructive pulmonary disease with (acute) lower respiratory infection; E89.0 Postprocedural hypothyroidism; Z96.641 Presence of right artificial hip joint; Z86.718 Personal history of other venous thrombosis and embolism; Z79.01 Long term (current) use of anticoagulants; Z79.899 Other long term (current) drug therapy; Z88.6 Allergy status to analgesic agent; Z88.4 Allergy status to anesthetic agent; Z88.8 Allergy status to other drugs, medicaments and biological substances; Z91.048 Other nonmedicinal substance allergy status; Z91.041 Radiographic dye allergy status; Z99.81 Dependence on supplemental oxygen

== ENCOUNTER → 2017-10-31 | Outpatient (CLI) | payer MEDICARE, OTHER ==
[2017-10-31 20:35] LABS: ANION GAP 6 MEQ/L (8-16); BLOOD UREA NITROGEN 9 MG/DL (7-18); CALCIUM LEVEL 9.1 MG/DL (8.8-10.2); CARBON DIOXIDE LEVEL 31 MEQ/L (21-32); CHLORIDE LEVEL 104 MEQ/L (98-107); CREATININE FOR GFR 0.97 MG/DL (0.55-1.30); GLOMERULAR FILTRATION RATE > 60.0 (>39); GLUCOSE, FASTING 103 MG/DL (70-100); SODIUM LEVEL 141 MEQ/L (136-145)
== END ==
LOC: M WUC 16:45
DX: E06.3 Autoimmune thyroiditis (principal); M81.0 Age-related osteoporosis without current pathological fracture
CPT/HCPCS: 84443

== ENCOUNTER 2018-02-28 08:50 | Day surgery (SDC) | payer MEDICARE, OTHER ==
[~2018-02-28 08:50] MED LIST changes: -/ALEN70TA OR; -/ALEN70TA PO; -/ROPI25TA OR; -/TIOT18INH INH; -/WARF5TA OR; -ACET500C PO; -ACET65TA OR; -ALBU83IN INH; -B COCAP5 PO; -CALCCHW12 OR; -CALCIUM/VITAMIN D PO; -CALCTAB22 OR; -COLA100C2 OR; -COUM10TA OR; -ELIQ5TAB PO; -ESTR0.5T3 PO; -ESTRING; -FISH1000 OR; -FISH300C2 PO; -FLON0.05; -LIDO5DIS EX; +LIDOCAINE 2% INJ 100 MG/5 ML SDV (FOR ANES.) As Ordered; -MUCI600T37 PO; -OMEP20TA7 PO; -PERC5TAB8 OR; -PERC7.5T8 OR; -PRED20TA PO; -PRIL40CA OR; -PROAAER INH; +PROPOFOL 200 MG/20 ML VIAL As Ordered; -PROV90AE IN; -RECL5INJ2 IV; -SALINE NASAL SPRAY; -SYMB80AE IN; -SYMB80AE INH; -SYNT75TA OR; -TUMS500C PO; -VIT D 2000 OR; -VITA500C OR; -VITA500T PO; -VITAMIN B COMPLE1 OR; -VITAMIN D 3 PO; -WARF1TAB PO
[2018-02-28] MEDS: NS 1,000 ML IV (09:00)
[2018-02-28] MEDS ORDERED: PROPOFOL 200 MG/20 ML VIAL As Ordered (10:25)
== END 2018-02-28 11:00 | disposition home or self-care (01) ==
LOC: M OPP 08:50
DX: R10.30 Lower abdominal pain, unspecified (principal); R19.4 Change in bowel habit; D12.2 Benign neoplasm of ascending colon; K57.30 Diverticulosis of large intestine without perforation or abscess without bleeding; R12 Heartburn; K44.9 Diaphragmatic hernia without obstruction or gangrene; E03.9 Hypothyroidism, unspecified; K21.9 Gastro-esophageal reflux disease without esophagitis; K57.32 Diverticulitis of large intestine without perforation or abscess without bleeding; M19.90 Unspecified osteoarthritis, unspecified site; M54.9 Dorsalgia, unspecified; M81.0 Age-related osteoporosis without current pathological fracture; F41.9 Anxiety disorder, unspecified; R51 Headache; Z78.0 Asymptomatic menopausal state; Z92.3 Personal history of irradiation; J44.9 Chronic obstructive pulmonary disease, unspecified; J45.909 Unspecified asthma, uncomplicated; R06.02 Shortness of breath; R32 Unspecified urinary incontinence; Z86.718 Personal history of other venous thrombosis and embolism; Z91.041 Radiographic dye allergy status; Z88.8 Allergy status to other drugs, medicaments and biological substances; Z91.048 Other nonmedicinal substance allergy status; Z79.01 Long term (current) use of anticoagulants; Z79.899 Other long term (current) drug therapy; Z87.891 Personal history of nicotine dependence
CPT/HCPCS: 45385

== ENCOUNTER → 2018-04-19 | Outpatient (CLI) | payer MEDICARE, OTHER | LOC: M RAD 14:49 | DX: Z12.2 Encounter for screening for malignant neoplasm of respiratory organs (principal); Z87.891 Personal history of nicotine dependence; J84.10 Pulmonary fibrosis, unspecified | CPT/HCPCS: G0297 ==

== ENCOUNTER → 2018-05-15 | Outpatient (CLI) | payer MEDICARE, OTHER ==
[2018-05-15 17:43] LABS: CALCIUM LEVEL 9.6 MG/DL (8.8-10.2)
[2018-05-15 18:00] LABS: TOTAL 25(OH) VITAMIN D 86.1 NG/ML (30.0-100.0)
== END ==
LOC: M WUC 13:54
DX: M81.0 Age-related osteoporosis without current pathological fracture (principal)
CPT/HCPCS: 82310

== ENCOUNTER → 2018-05-31 | Outpatient (CLI) | payer MEDICARE, OTHER | LOC: M WUC 15:43 | DX: M51.36 Other intervertebral disc degeneration, lumbar region (principal); M43.17 Spondylolisthesis, lumbosacral region; M17.11 Unilateral primary osteoarthritis, right knee | CPT/HCPCS: 72110 ==

== ENCOUNTER → 2018-07-10 | Outpatient (CLI) | payer MEDICARE, OTHER ==
[2018-07-10 12:46] LABS: BASO # 0.1 10^3/uL (0.0-0.2); BASO % 1.4 % (0.0-1.0); EOS # 0.1 10^3/uL (0.0-0.50); EOS % 2.2 % (0.0-3.0); HEMATOCRIT 46.7 % (36.0-47.0); HEMOGLOBIN 15.1 g/dl (12.0-15.5); IMMATURE GRANULOCYTE % 0.4 % (0-3.0); LYMPH # 1.6 10^3/uL (1.5-4.5); LYMPH % 31.5 % (24.0-44.0); MEAN CORPUSCULAR HEMOGLOBIN 30.6 pg (27.0-33.0); MEAN CORPUSCULAR HGB CONC 32.3 g/dl (32.0-36.5); MEAN CORPUSCULAR VOLUME 94.5 fl (80.0-96.0); MONO # 0.5 10^3/uL (0.0-0.8); MONO % 9.5 % (0.0-5.0); NEUTROPHILS # 2.8 10^3/uL (1.8-7.7); PLATELET COUNT, AUTOMATED 252 10^3/uL (150-450); RED BLOOD COUNT 4.94 10^6/uL (4.00-5.40); RED CELL DISTRIBUTION WIDTH 12.4 % (11.5-14.5); WHITE BLOOD COUNT 5.1 10^3/uL (4.0-10.0)
[2018-07-10 14:13] LABS: ALBUMIN 3.6 GM/DL (3.2-5.2); ALKALINE PHOSPHATASE 61 U/L (45-117); ALT/SGPT 29 U/L (12-78); ANION GAP 8 MEQ/L (8-16); AST/SGOT 23 U/L (7-37); BILIRUBIN,TOTAL 0.7 MG/DL (0.2-1.0); BLOOD UREA NITROGEN 10 MG/DL (7-18); CARBON DIOXIDE LEVEL 29 MEQ/L (21-32); CHLORIDE LEVEL 105 MEQ/L (98-107); CHOLESTEROL LEVEL 202 MG/DL (<200); CHOLESTEROL RISK RATIO 3.107 (<5); CREATININE FOR GFR 0.86 MG/DL (0.55-1.30); GLOMERULAR FILTRATION RATE > 60.0 (>39); GLUCOSE, FASTING 95 MG/DL (70-100); HDL CHOLESTEROL 65 MG/DL (>40); LDL CHOLESTEROL 110 MG/DL (<100); NON-HDL-C 137 MG/DL; POTASSIUM SERUM 4.3 MEQ/L (3.5-5.1); SODIUM LEVEL 142 MEQ/L (136-145); TOTAL PROTEIN 6.6 GM/DL (6.4-8.2); TRIGLYCERIDES LEVEL 136 MG/DL (<150)
== END ==
LOC: M WUC 10:41
DX: Z51.81 Encounter for therapeutic drug level monitoring (principal); Z79.899 Other long term (current) drug therapy
CPT/HCPCS: 80053

== ENCOUNTER → 2018-10-09 | Outpatient (CLI) | payer MEDICARE, OTHER ==
[~2018-10-09] MED LIST changes: +/ALEN70TA OR; +/ALEN70TA PO; +/ROPI25TA OR; +/TIOT18INH INH; +/WARF5TA OR; +ACET500C PO; +ACET65TA OR; +ALBU83IN INH; +B COCAP5 PO; +BLIN0.25 OU; +CALC600T31 PO; +CALCCHW12 OR; +CALCIUM/VITAMIN D PO; +CALCTAB22 OR; +COLA100C2 OR; +COUM10TA OR; +ELIQ5TAB PO; +ESTR0.5T3 PO; +ESTR1CRE PV; +ESTRING; +FISH1000 OR; +FISH1200 PO; +FISH300C2 PO; +FLON0.05; +LEVO88TA3 PO; +LIDO5DIS EX; -LIDOCAINE 2% INJ 100 MG/5 ML SDV (FOR ANES.) As Ordered; +MAGN400T5 PO; +MUCI600T37 PO; +OMEP20CA3 PO; +OMEP20TA7 PO; +OMEP40CA2 PO; +PERC5TAB8 OR; +PERC7.5T8 OR; +PRED10TA2 PO; +PRED20TA PO; +PRIL40CA OR; +PROAAER INH; +PROAAER10 INH; +PROL60SO IM; -PROPOFOL 200 MG/20 ML VIAL As Ordered; +PROV90AE IN; +RECL5INJ2 IV; +RETA0.5E OU; +SALINE NASAL SPRAY; +SPIR1CAP INH; +SUPE1TAB PO; +SYMB80AE IN; +SYMB80AE INH; +SYMB80INH INH; +SYNT75TA OR; +TIZA2CAP PO; +TIZA2TA PO; +TUMS500C PO; +TYLE500T78 PO; +VIT D 2000 OR; +VITA10006 PO; +VITA500055 PO; +VITA500C OR; +VITA500T PO; +VITAMIN B COMPLE1 OR; +VITAMIN D 3 PO; +VITMTA PO; +WARF1TAB PO; +[UNRECOGNIZED DRUG - CODE] PO
== END ==
LOC: M WHC 15:16
PROVIDERS: ATTEND Internal Medicine Endocrinology, Diabetes & Metabolism
DX: M81.0 Age-related osteoporosis without current pathological fracture (principal)

== ENCOUNTER → 2018-11-05 | Outpatient (CLI) | payer MEDICARE, OTHER ==
--- NOTE | 2018-11-05 16:27 | REPMRS ---
Patient History The patient states she had a clinical breast exam in 11/2018. Patient is postmenopausal. Benign stereotatic breast biopsy of the left breast, 2000. Benign excisional biopsy of the right breast, 1997. Taking estrogen for 4 years. 3D TOMOSYNTHESIS WAS PERFORMED. Digital Woman Screen Mammo: November 05, 2018 - Exam #: [id number] Bilateral CC and MLO view(s) were taken. Technologist: Daly Bergeron, Technologist Prior study comparison: August 08, 2017, digital woman screen mammo performed at [facility]. August 04, 2016, digital woman screen mammo performed at [facility]. FINDINGS: The breast tissue is heterogeneously dense. This may lower the sensitivity of mammography. There has been no change in the appearance of the mammogram from the prior studies. There is a moderate amount of residual fibroglandular tissue which is fairly symmetric. There is no interval development of dominant mass, areas of architectural distortion, or clustered microcalcification typical of malignancy. Assessment: BI-RADS/ACR category 1 mammogram. Negative Mammogram. Recommendation Routine screening mammogram in 1 year (for women over age 40). This mammogram was interpreted with the aid of an FDA-approved computer-aided dectection system. Electronically Signed By: Pablo Lin MD 11/05/18 [id number]
== END ==
LOC: M WHC 15:09
PROVIDERS: ATTEND Nurse Practitioner Family
DX: Z01.419 Encounter for gynecological examination (general) (routine) without abnormal findings (principal); Z12.31 Encounter for screening mammogram for malignant neoplasm of breast; Z78.0 Asymptomatic menopausal state; Z92.23 Personal history of estrogen therapy; Z86.018 Personal history of other benign neoplasm
CPT/HCPCS: 77063; 77067; G0101

== ENCOUNTER → 2018-11-13 | Outpatient (CLI) | payer MEDICARE, OTHER ==
[2018-11-13 17:24] LABS: CALCIUM LEVEL 9.2 MG/DL (8.8-10.2); THYROID STIMULATING HORMONE 0.904 uIU/ML (0.358-3.740); TOTAL 25(OH) VITAMIN D 80.9 NG/ML (30.0-100.0)
== END ==
LOC: M WUC 12:15
PROVIDERS: ATTEND Internal Medicine Endocrinology, Diabetes & Metabolism
DX: M81.0 Age-related osteoporosis without current pathological fracture (principal); E55.9 Vitamin D deficiency, unspecified; E06.3 Autoimmune thyroiditis

== ENCOUNTER → 2019-01-07 | Outpatient (CLI) | payer MEDICARE, OTHER ==
[~2019-01-07] MED LIST changes: -/ROPI25TA OR; -/TIOT18INH INH; -/WARF5TA OR; +COUM1TAB17 OR; +REQU1TAB14 OR
[2019-01-07 17:26] LABS: ALBUMIN 3.1 GM/DL (3.2-5.2); ALT/SGPT 28 U/L (12-78); BILIRUBIN,TOTAL 0.7 MG/DL (0.2-1.0); BLOOD UREA NITROGEN 11 MG/DL (7-18); CALCIUM LEVEL 8.2 MG/DL (8.8-10.2); CARBON DIOXIDE LEVEL 29 MEQ/L (21-32); CHLORIDE LEVEL 107 MEQ/L (98-107); CHOLESTEROL LEVEL 191 MG/DL (<200); CHOLESTEROL RISK RATIO 2.808 (<5); CREATININE FOR GFR 0.97 MG/DL (0.55-1.30); GLOMERULAR FILTRATION RATE > 60.0 (>39); GLUCOSE, FASTING 99 MG/DL (70-100); HDL CHOLESTEROL 68 MG/DL (>40); LDL CHOLESTEROL 100 MG/DL (<100); NON-HDL-C 123 MG/DL; POTASSIUM SERUM 4.1 MEQ/L (3.5-5.1); SODIUM LEVEL 143 MEQ/L (136-145); TOTAL PROTEIN 6.7 GM/DL (6.4-8.2); TRIGLYCERIDES LEVEL 115 MG/DL (<150)
== END ==
LOC: M WUC 11:45
PROVIDERS: ATTEND Family Medicine
DX: E78.5 Hyperlipidemia, unspecified (principal)

== ENCOUNTER → 2019-05-28 | Outpatient (CLI) | payer MEDICARE, OTHER ==
[~2019-05-28] MED LIST changes: -OMEP20CA3 PO; +OMEP20CA4 PO
== END ==
LOC: M WUC 11:52
PROVIDERS: ATTEND Internal Medicine Endocrinology, Diabetes & Metabolism
DX: M81.0 Age-related osteoporosis without current pathological fracture (principal)

== ENCOUNTER → 2019-06-17 | Outpatient (CLI) | payer MEDICARE, OTHER ==
[~2019-06-17] MED LIST changes: -OMEP40CA2 PO; +OMEP40CA97 PO
--- NOTE | 2019-06-17 17:20 | REP ---
REASON: Pain. COMPARISON: 05/31/2018. Once again, there are chronic changes seen involving the lumbar spine with disc space narrowing and L5-S1 spondylolisthesis with bilateral L5 spondylolysis all stable. There are no new abnormalities. There is no significant change from the prior exam. IMPRESSION:Stable chronic changes. Electronically Signed by Gabriel Pacheco DO 06/18/2019 02:12 P
--- NOTE | 2019-06-17 17:51 | REP ---
REASON FOR EXAM: Hip pain. COMPARISON: EXAM: 05/31/2018. Previous ORIF noted status quo. The lag screw and fixation screws are unchanged. There is no acute fracture. IMPRESSION:No significant change. Electronically Signed by Gabriel Pacheco DO 06/18/2019 02:13 P
== END ==
LOC: M WUC 14:51
PROVIDERS: ATTEND Physician Assistant Medical
DX: M25.551 Pain in right hip (principal); M51.37 Other intervertebral disc degeneration, lumbosacral region

== ENCOUNTER → 2019-07-01 | Outpatient (CLI) | payer MEDICARE, OTHER ==
[2019-07-04 00:06] LABS: Lyme Disease IgG/IgM Antibodie <0.91 ISR (0.00-0.90); Lyme Disease IgM Ab Quantitati <0.80 index (0.00-0.79)
== END ==
LOC: M WUC 13:11
PROVIDERS: ATTEND Physician Assistant
DX: R21 Rash and other nonspecific skin eruption (principal)

== ENCOUNTER → 2019-11-28 | Outpatient (REF) | payer MEDICARE, OTHER ==
[~2019-11-28] MED LIST changes: +OMEP1CAP73 PO; -OMEP20CA4 PO
[2019-11-28 15:58] LABS: CALCIUM LEVEL 9.4 MG/DL (8.8-10.2); THYROID STIMULATING HORMONE 1.92 uIU/ML (0.358-3.740)
[2019-11-28 15:59] LABS: TOTAL 25(OH) VITAMIN D 85.5 NG/ML (30.0-100.0)
== END ==
LOC: M LABDRAW1 13:20
PROVIDERS: ATTEND Internal Medicine Endocrinology, Diabetes & Metabolism
DX: E55.9 Vitamin D deficiency, unspecified (principal); E06.3 Autoimmune thyroiditis; Z79.51 Long term (current) use of inhaled steroids; Z79.899 Other long term (current) drug therapy

== ENCOUNTER → 2020-05-05 | Outpatient (CLI) | payer MEDICARE, OTHER ==
--- NOTE | 2020-06-03 12:54 | REP ---
LOW DOSE LUNG SCREENING CT CLINICAL: History of nicotine dependence. TECHNIQUE: Axial noncontrast images from the thoracic inlet to the upper abdomen using low dose lung screening technique. COMPARISON: 04/19/2018 FINDINGS: Advanced emphysematous disease is appreciated along with scattered scarring and bronchiectasis. Bibasilar fibroatelectatic changes primarily involving the right lower lobe remain stable. No acute consolidation. No nodule or mass lesion. No effusion. No pneumothorax. IMPRESSION: * Advanced emphysematous changes with bibasilar fibroatelectatic changes and scarring stable compared to 2018. * No acute nodule or mass. * Lung-RADS category 1. Management and recommendations include annual low dose CT surveillance. [facility]
== END ==
LOC: M RAD 12:24
PROVIDERS: ATTEND Physician Assistant
DX: Z12.2 Encounter for screening for malignant neoplasm of respiratory organs (principal); Z87.891 Personal history of nicotine dependence; J43.9 Emphysema, unspecified; J84.10 Pulmonary fibrosis, unspecified; J98.4 Other disorders of lung

== ENCOUNTER → 2020-06-01 | Outpatient (CLI) | payer MEDICARE, OTHER | LOC: M PLALAB 12:15 | PROVIDERS: ATTEND Internal Medicine Endocrinology, Diabetes & Metabolism | DX: M81.0 Age-related osteoporosis without current pathological fracture (principal) ==

== ENCOUNTER → 2020-06-16 | Outpatient (CLI) | payer MEDICARE, OTHER ==
--- NOTE | 2020-06-16 15:44 | REPMRS ---
Patient History The patient states she had a clinical breast exam in June 2020. Patient is postmenopausal. Benign stereotatic breast biopsy of the left breast, 2000. Benign excisional biopsy of the right breast, 1997. Took estrogen for 4 years. Digital Woman Screen Mammo: June 16, 2020 - Exam #: [id number] Bilateral CC and MLO view(s) were taken. Technologist: Christina Mercedes, Technologist Prior study comparison: November 05, 2018, bilateral digital woman screen mammo performed at [facility]. August 08, 2017, digital woman screen mammo performed at [facility]. August 04, 2016, digital woman screen mammo performed at [facility]. FINDINGS: There are scattered fibroglandular densities. The Volpara volumetric breast density category is:B. There is a needle biopsy marker clip in the left breast. There has been no change in the appearance of the mammogram from the prior studies. There is a mild amount of scattered fibroglandular density which is fairly symmetric. There is no interval development of dominant mass, architectural distortion, or grouped microcalcification suggestive of malignancy. 3-D tomosynthesis shows no additional findings. Assessment: BI-RADS/ACR category 2 mammogram. Benign Findings. Recommendation Routine screening mammogram of both breasts in 1 year (for women over age 40). This patient's Lifetime Breast Cancer Risk is estimated at 3.3 %. This mammogram was interpreted with the aid of an FDA-approved computer-aided dectection system. Electronically Signed By: Koffi Lombardi MD 06/16/20 [id number]
== END ==
LOC: M WHC 14:12
PROVIDERS: ATTEND Nurse Practitioner Family
DX: Z12.31 Encounter for screening mammogram for malignant neoplasm of breast (principal); Z78.0 Asymptomatic menopausal state; Z86.018 Personal history of other benign neoplasm; Z92.23 Personal history of estrogen therapy

== ENCOUNTER → 2020-12-21 | Outpatient (REF) | payer MEDICARE, OTHER ==
[2020-12-21 16:06] LABS: CALCIUM LEVEL 9.6 MG/DL (8.8-10.2); THYROID STIMULATING HORMONE 2.63 uIU/ML (0.358-3.740); TOTAL 25(OH) VITAMIN D 86.7 NG/ML (30.0-100.0)
== END ==
LOC: M PLALAB 15:03
PROVIDERS: ATTEND Internal Medicine Endocrinology, Diabetes & Metabolism
DX: M81.0 Age-related osteoporosis without current pathological fracture (principal); E55.9 Vitamin D deficiency, unspecified; E06.3 Autoimmune thyroiditis

== ENCOUNTER → 2021-06-21 | Outpatient (CLI) | payer MEDICARE, OTHER ==
[~2021-06-21] MED LIST changes: +OMEP40CA4 PO; -OMEP40CA97 PO
[2021-06-21 16:23] LABS: HEMATOCRIT 48.9 % (36.0-47.0); HEMOGLOBIN 15.9 g/dl (12.0-15.5); MEAN CORPUSCULAR HEMOGLOBIN 30.9 pg (27.0-33.0); MEAN CORPUSCULAR HGB CONC 32.5 g/dl (32.0-36.5); PLATELET COUNT, AUTOMATED 243 10^3/uL (150-450); RED BLOOD COUNT 5.15 10^6/uL (4.00-5.40); WHITE BLOOD COUNT 4.8 10^3/uL (4.0-10.0)
[2021-06-21 16:42] LABS: ALBUMIN 3.8 GM/DL (3.2-5.2); ALT/SGPT 37 U/L (12-78); BILIRUBIN,TOTAL 0.6 MG/DL (0.2-1.0); BLOOD UREA NITROGEN 13 MG/DL (7-18); CALCIUM LEVEL 9.1 MG/DL (8.8-10.2); CARBON DIOXIDE LEVEL 31 MEQ/L (21-32); CHLORIDE LEVEL 108 MEQ/L (98-107); CHOLESTEROL LEVEL 235 MG/DL (<200); CHOLESTEROL RISK RATIO 3.175 (<5); CREATININE FOR GFR 0.87 MG/DL (0.55-1.30); GLOMERULAR FILTRATION RATE > 60.0 (>39); GLUCOSE, FASTING 101 MG/DL (70-100); HDL CHOLESTEROL 74 MG/DL (>40); LDL CHOLESTEROL 132 MG/DL (<100); NON-HDL-C 161 MG/DL; POTASSIUM SERUM 4.3 MEQ/L (3.5-5.1); SODIUM LEVEL 142 MEQ/L (136-145); TOTAL PROTEIN 6.8 GM/DL (6.4-8.2); TRIGLYCERIDES LEVEL 143 MG/DL (<150)
== END ==
LOC: M PLALAB 12:56
PROVIDERS: ATTEND Family Medicine
DX: E78.5 Hyperlipidemia, unspecified (principal)

== ENCOUNTER → 2021-06-21 | Outpatient (CLI) | payer MEDICARE, OTHER | LOC: M PLALAB 12:54 | PROVIDERS: ATTEND Internal Medicine Endocrinology, Diabetes & Metabolism | DX: M81.0 Age-related osteoporosis without current pathological fracture (principal) ==

== ENCOUNTER → 2021-06-23 | Outpatient (CLI) | payer MEDICARE, OTHER ==
--- NOTE | 2021-06-23 16:25 | REP ---
INDICATION: KEENAN SCR MAMMO Z12.31. COMPARISON: Multiple the latest 06/16/2020 TECHNIQUE: Digital screening mammography was cardio bilaterally in the CC and MLO projections using both 2D and 3D modalities and compared to the prior exams. By history, the patient has no complaints of a palpable breast abnormality or other significant breast complaints. FINDINGS: The breasts are unchanged in size and shape. Once again, dense heterogenous fibroglandular elements are seen bilaterally. In the right breast upper outer quadrant there is a potential hetal asymmetric density. No other suspicious features are seen in either breast. Stable benign calcifications are again seen bilaterally. There is no skin thickening or nipple retraction. The Volpara volumetric breast density pattern is b. IMPRESSION: BIRADS/ACR category 0 mammogram. Potential hetal density in the right breast as described above for which diagnostic digital DBT spot compression views are recommended in the CC and MLO projections along with diagnostic ultrasonography if necessary. This patient's Tyrer-Cuzick lifetime breast cancer risk assessment score is 3.1%. This mammogram was interpreted with the aid of an FDA-approved computer-aided detection system. The patient states she had a clinical breast exam in June 2021. The patient letter being requested is M0. RECOMMENDATION: As above <Electronically signed by Gabriel Pacheco > 06/23/21 [id number]
== END ==
LOC: M WHC 15:25
PROVIDERS: ATTEND Nurse Practitioner Women's Health
DX: Z01.419 Encounter for gynecological examination (general) (routine) without abnormal findings (principal); Z12.31 Encounter for screening mammogram for malignant neoplasm of breast; N63.11 Unspecified lump in the right breast, upper outer quadrant; R92.1 Mammographic calcification found on diagnostic imaging of breast
CPT/HCPCS: 77063; 77067; G0101

== ENCOUNTER → 2021-07-01 | Outpatient (CLI) | payer MEDICARE, OTHER ==
[2021-07-01 19:05] LABS: HEMOGLOBIN A1c 5.7 %
== END ==
LOC: M PLALAB 14:20
PROVIDERS: ATTEND Internal Medicine Endocrinology, Diabetes & Metabolism
DX: E06.3 Autoimmune thyroiditis (principal); R73.9 Hyperglycemia, unspecified

== ENCOUNTER → 2021-07-07 | Outpatient (CLI) | payer MEDICARE, OTHER ==
--- NOTE | 2021-07-07 16:20 | REP ---
INDICATION: RIGHT BREAST ADD VIEWS. COMPARISON: 06/23/2021 as well as other prior exams. TECHNIQUE: Spot-compression tomographic images are performed of the right breast. FINDINGS: No persistent hetal density or nodule is seen in the right breast on today's additional views. There is no change compared to prior exams. IMPRESSION: BIRADS/ACR category 1, negative mammogram right breast. This mammogram was interpreted with the aid of an FDA-approved computer-aided detection system. The patient letter being requested is M 1. RECOMMENDATION: Repeat screening mammography recommended 1 year (for women over 40). <Electronically signed by Pablo Lin > 07/07/21 [id number]
== END ==
LOC: M WHC 14:58
PROVIDERS: ATTEND Nurse Practitioner Women's Health
DX: Z12.31 Encounter for screening mammogram for malignant neoplasm of breast (principal)
CPT/HCPCS: 77065; G0279

== ENCOUNTER → 2021-12-29 | Outpatient (CLI) | payer MEDICARE, OTHER ==
[2021-12-29 17:39] LABS: CALCIUM LEVEL 9.1 MG/DL (8.8-10.2)
[2021-12-29 17:54] LABS: TOTAL 25(OH) VITAMIN D 96.7 NG/ML (30.0-100.0)
== END ==
LOC: M PLALAB 15:41
PROVIDERS: ATTEND Internal Medicine Endocrinology, Diabetes & Metabolism
DX: E06.3 Autoimmune thyroiditis (principal); E55.9 Vitamin D deficiency, unspecified

== ENCOUNTER → 2022-01-20 | Outpatient (CLI) | payer MEDICARE, OTHER | LOC: M WHC 12:30 | PROVIDERS: ATTEND Internal Medicine Endocrinology, Diabetes & Metabolism | DX: Z13.820 Encounter for screening for osteoporosis (principal); M85.88 Other specified disorders of bone density and structure, other site; M85.852 Other specified disorders of bone density and structure, left thigh ==

== ENCOUNTER → 2022-08-16 | Outpatient (CLI) | payer MEDICARE, OTHER ==
[~2022-08-16] MED LIST changes: +ALBU2.5V10 INH; -ALBU83IN INH
== END ==
LOC: M WHC 13:20
PROVIDERS: ATTEND Advanced Practice Midwife
DX: Z12.31 Encounter for screening mammogram for malignant neoplasm of breast (principal)

== ENCOUNTER → 2022-11-24 | Outpatient (REF) | payer MEDICARE, OTHER ==
[2022-11-24 19:17] LABS: BASO # 0.1 10^3/uL (0.0-0.2); BASO % 1.6 % (0.0-1.0); EOS # 0.1 10^3/uL (0.0-0.5); EOS % 1.2 % (0.0-3.0); HEMATOCRIT 41.9 % (36.0-47.0); HEMOGLOBIN 13.8 g/dl (12.0-15.5); LYMPH # 1.1 10^3/uL (1.5-5.0); LYMPH % 15.8 % (24.0-44.0); MEAN CORPUSCULAR HEMOGLOBIN 31.9 pg (27.0-33.0); MEAN CORPUSCULAR HGB CONC 32.9 g/dl (32.0-36.5); MONO # 0.7 10^3/uL (0.0-0.8); MONO % 10.7 % (2.0-8.0); NEUTROPHILS # 4.7 10^3/uL (1.5-8.5); NEUTROPHILS % 70.4 % (36.0-66.0); PLATELET COUNT, AUTOMATED 311 10^3/uL (150-450); RED BLOOD COUNT 4.32 10^6/uL (4.00-5.40); WHITE BLOOD COUNT 6.7 10^3/uL (4.0-10.0)
[2022-11-24 19:25] LABS: AMORPHOUS SEDIMENT SMALL (NEGATIVE); APPEARANCE, URINE CLOUDY (CLEAR); BACTERIA, URINE AUTO 1+ (NEGATIVE); BILIRUBIN, URINE AUTO NEGATIVE (NEGATIVE); BLOOD, URINE BLOOD NEGATIVE (NEGATIVE); CALCIUM OXALATE CRYSTALS MODERATE; COLOR, URINE AMBER (YELLOW); GLUCOSE, URINE (UA) AUTO NEGATIVE (NEGATIVE); KETONE, URINE AUTO NEGATIVE (NEGATIVE); LEUKOCYTE ESTERASE, URINE AUTO 2+ (NEGATIVE); NITRITE, URINE AUTO NEGATIVE (NEGATIVE); PROTEIN, URINE AUTO NEGATIVE (NEGATIVE); RBC, URINE AUTO 2 /HPF (0-3); SPECIFIC GRAVITY URINE AUTO 1.018 (1.002-1.035); SQUAMOUS EPITHELIAL CELL UR AU 0 /HPF (0-6); UROBILINOGEN, URINE AUTO 0.2 mg/dL (0.0-2.0); WBC, URINE AUTO 4 /HPF (0-3)
[2022-11-24 19:44] LABS: URIC ACID 2.4 MG/DL (3.1-7.8)
[2022-11-24 19:52] LABS: ALBUMIN 3.5 G/DL (3.2-5.2); ALKALINE PHOSPHATASE 58 U/L (46-116); ALT/SGPT 16 U/L (7.0-40); AST/SGOT 18 U/L (<34); BILIRUBIN,TOTAL 0.6 MG/DL (0.3-1.2); BLOOD UREA NITROGEN 10 MG/DL (9-23); CALCIUM LEVEL 9.4 MG/DL (8.3-10.6); CARBON DIOXIDE LEVEL 34 MMOL/L (20-31); CHLORIDE LEVEL 94 MMOL/L (98-107); CREATININE FOR GFR 0.65 MG/DL (0.55-1.30); GLOMERULAR FILTRATION RATE > 60.0 (>39); GLUCOSE, FASTING 87 MG/DL (74-106); POTASSIUM SERUM 4.8 MMOL/L (3.5-5.1); SODIUM LEVEL 133 MMOL/L (136-145); TOTAL PROTEIN 6.3 G/DL (5.7-8.2)
[2022-11-24 19:56] LABS: ERYTHROCYTE SEDIMENTATION RATE 32 mm/hr (0-30)
[2022-11-26 11:11] LABS: ANTINUCLEAR ANTIBODIES DIRECT Negative (Negative)
== END ==
LOC: M PLALAB 17:12
PROVIDERS: ATTEND Nurse Practitioner Family
DX: R21 Rash and other nonspecific skin eruption (principal)

== ENCOUNTER → 2023-01-03 | Outpatient (REF) | payer MEDICARE, OTHER ==
[2023-01-03 19:29] LABS: CALCIUM LEVEL 8.2 MG/DL (8.3-10.6)
[2023-01-03 19:34] LABS: THYROID STIMULATING HORMONE 4.069 uIU/ML (0.55-4.78); TOTAL 25(OH) VITAMIN D 100.9 NG/ML (20.0-100.0)
== END ==
LOC: M LAB REF 17:58
PROVIDERS: ATTEND Internal Medicine Endocrinology, Diabetes & Metabolism
DX: M81.0 Age-related osteoporosis without current pathological fracture (principal); E55.9 Vitamin D deficiency, unspecified; E06.3 Autoimmune thyroiditis

== ENCOUNTER 2023-02-22 08:49 | Emergency (ER) | payer MEDICARE, OTHER ==
[~2023-02-22] VITALS: Ht 170.2 cm; Wt 61.8 kg
[2023-02-22] MEDS ORDERED: NS 500 ML IV ONE (09:15)
[2023-02-22] MEDS ORDERED: MUPI2OI TOP (09:54)
[2023-02-22] MEDS ORDERED: PRED20TA PO (09:54)
[2023-02-22] MEDS ORDERED: SERT-141 PO (09:54)
[2023-02-22 11:26] VITALS: BP 131/87; TEMP 98.1; O2SAT 99
== END 2023-02-22 11:54 | disposition home or self-care (01) ==
LOC: M ED 08:49 → EDBD 08:49 → M ED 11:54
DX: Z71.1 Person with feared health complaint in whom no diagnosis is made (principal); J44.9 Chronic obstructive pulmonary disease, unspecified; I10 Essential (primary) hypertension; K21.9 Gastro-esophageal reflux disease without esophagitis; Z86.718 Personal history of other venous thrombosis and embolism; Z87.440 Personal history of urinary (tract) infections; Z91.041 Radiographic dye allergy status; Z88.8 Allergy status to other drugs, medicaments and biological substances; Z79.01 Long term (current) use of anticoagulants; Z79.899 Other long term (current) drug therapy; Z79.51 Long term (current) use of inhaled steroids; Z79.52 Long term (current) use of systemic steroids